=== PATIENT | female | born 2000 | race Two or more races ===

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

== ENCOUNTER 2020-03-25 19:52 | Emergency (ER) | payer OTHER ==
[~2020-03-25] VITALS: Ht 154.9 cm; Wt 64.0 kg
[2020-03-25] MEDS ORDERED: ONDANSETRON 2MG/ML, 2ML IVPush ONE (20:30)
[2020-03-25] MEDS ORDERED: SODIUM CHLORIDE FLUSH 10ML SYR IVF ONE (20:30)
[2020-03-25 20:50] LABS: BASOPHILS % (AUTO) 1 % (0-1); EOSINOPHILS % (AUTO) 0 % (1-7); LYMPHOCYTES % (AUTO) 36 % (22-44); MEAN CORPUSCULAR HEMOGLOBIN 26.3 pg (27.0-34.8); MEAN CORPUSCULAR HGB CONC 31.9 g/dL (32.4-35.8); MEAN PLATELET VOLUME 8.5 fL (7.4-10.4); MONOCYTES % (AUTO) 6 % (2-9); NEUTROPHILS % (AUTO) 56 % (42-75); PLATELET COUNT 313 x10^3/uL (130-400); RED BLOOD COUNT 4.19 x10^6/uL (3.82-5.3); RED CELL DISTRIBUTION WIDTH 19.5 % (9.6-15.2)
[2020-03-25 20:52] LABS: MD NO
[2020-03-25 21:01] LABS: ALANINE AMINOTRANSFERASE 20 U/L (12-78); ALBUMIN 3.7 g/dL (3.4-5.0); ANION GAP 5 mmol/L (5-15); CALCIUM 8.2 mg/dL (8.5-10.1); CHLORIDE 111 mmol/L (98-107)
[2020-03-25 21:06] LABS: ALKALINE PHOSPHATASE 86 U/L (45-117); BILIRUBIN,TOTAL 0.4 mg/dL (0.2-1.0); TOTAL PROTEIN 7.4 g/dL (6.4-8.2)
--- NOTE | 2020-03-25 21:10 | NUR ---
pt to room from lobby
--- NOTE | 2020-03-25 21:24 | NUR ---
NEED IV FOR CT.
[2020-03-25] MEDS ORDERED: ONDANSETRON 2MG/ML, 2ML ONE (21:32)
[2020-03-25] MEDS ORDERED: MORPHINE SULFATE 4 MG/ML, 1ML ONE ×2 (21:32→23:23)
[2020-03-25] MEDS: MORPHINE SULFATE 4 MG/ML, 1ML IVPush PRN ×2 (21:51→23:29)
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
[2020-03-25] MEDS ORDERED: OMNIPAQUE 350 MG/ML, 100ML BOTTLE ONE (22:16)
--- NOTE | 2020-03-25 22:17 | NUR ---
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
[2020-03-25] MEDS ORDERED: SODIUM CHLORIDE 0.9% 1,000ML IVBOLUS ONE (22:30)
[2020-03-25 22:36] LABS: MICROSCOPIC INDICATED
[2020-03-25] MEDS ORDERED: KETOROLAC 30 MG/1 ML ONE (23:22)
[2020-03-25] MEDS ORDERED: KETOROLAC 30 MG/1 ML IVPush ONE (23:30)
--- NOTE | 2020-03-25 23:30 | NUR ---
Provider at bedside
[2020-03-26 02:09] VITALS: BP 100/57
== END 2020-03-26 02:11 | disposition home or self-care (01) ==
LOC: ED 21:50
DX: S62.636A Displaced fracture of distal phalanx of right little finger, initial encounter for closed fracture (principal); S20.211A Contusion of right front wall of thorax, initial encounter; S30.1XXA Contusion of abdominal wall, initial encounter; V86.59XA Driver of other special all-terrain or other off-road motor vehicle injured in nontraffic accident, initial encounter; Y93.89 Activity, other specified; Y92.89 Other specified places as the place of occurrence of the external cause; Y99.8 Other external cause status
CPT/HCPCS: 29130; 36415; 71045; 73140; 74177; 80053; 81001; 83690; 84703; 85025; 96361; 96374; 96375; 96376; 99285; J1885; J2270; J2405; J7030; Q9967